=== PATIENT | male | born 1970 | race Caucasian/White ===

== ENCOUNTER 2016-11-09 22:53 | Emergency (ER) | payer SELFPAY ==
[2016-11-09 23:03] VITALS: BP 126/78
[2016-11-10] MEDS ORDERED: oxyCODONE/Acetamin 5/325 MG* TAB PO ONE ×2 (01:46→02:32)
--- NOTE | 2016-11-10 01:57 | ED ---
Upper Extremity Pain - HPI Summary HPI Summary: 46M presents with right hand pain for a day. He was pulling on his windshield wiper and felt a snap. He states though that he injured a week ago with a chain. He states he has had pain in ring finger on right hand for week that has been getting worst and then felt the snap today. had boxer fx of right pinky 4 years ago. denies any numbness or tingling. has been 16 hours since felt pop. he said he tried to reduce it himself and almost blacked out. is right handed. for work he uses heavy machinery. - History of Current Complaint Chief Complaint: EDExtremityUpper Stated Complaint: RT HAND INJURY Time Seen by Provider: 11/10/16 00:50 - Allergies/Home Medications Allergies/Adverse Reactions: Allergies Allergy/AdvReac Type Severity Reaction Status Date / Time Bee Venom Allergy Anaphylatic Verified 11/09/16 22:59 Shock Penicillins Allergy Anaphylatic Verified 11/09/16 22:59 Shock Shrimp Flavor Allergy Anaphylatic Verified 11/09/16 22:59 Shock PMH/Surg Hx/FS Hx/Imm Hx Endocrine/Hematology History: Denies: Hx Anticoagulant Therapy Cardiovascular History: Reports: Hx Hypertension Infectious Disease History: No Infectious Disease History: Denies: Traveled Outside the [place] in Last 30 Days - Family History Known Family History: Positive: Hypertension - Social History Alcohol Use: None Substance Use Type: Reports: None Smoking Status (MU): Light Every Day Tobacco Smoker Review of Systems Negative: Fever Negative: Chest Pain Negative: Shortness Of Breath Positive: Myalgia - right hand lac All Other Systems Reviewed And Are Negative: Yes Physical Exam Triage Information Reviewed: Yes Vital Signs On Initial Exam: Initial Vitals Temp Pulse Resp BP Pulse Ox 98 F 80 16 126/78 100 11/09/16 23:00 11/09/16 23:00 11/09/16 23:00 11/09/16 23:00 11/09/16 23:00 Vital Signs Reviewed: Yes Appearance: Positive: Pain Distress Skin: Positive: Warm, Dry Head/Face: Positive: Normal Head/Face Inspection Eyes: Positive: Normal, Conjunctiva Clear Respiratory/Lung Sounds: Positive: Clear to Auscultation, Breath Sounds Present Cardiovascular: Positive: Normal, RRR Musculoskeletal: Positive: Limited @ - right ring finger, Other - deformity to right ring finger. capillary refill<2 secs, sesnation grossly intact, tender over metacarpel right ring finger, good pulses - Gabriel Coma Scale Coma Scale Total: 15 Procedures - Splinting Location: right hand Hand-Made Type: orthoglass Splint: ulnar Pre-Proc Neuro Vasc Exam: normal Post-Proc Neuro Vasc Exam: normal - Joint Reduction Joint Reduction Site: other - 4th right metacarpel Specify Other Joint Reduced: 4th right metacarpel Conscious Sedation: No - hematoma block Reduction Attempts: 5 - unable to successful reduce without muscle spasms Pre-Procedure NV Exam: Yes Diagnostics - Vital Signs Vital Signs Temp Pulse Resp BP Pulse Ox 11/09/16 23:00 98 F 80 16 126/78 100 - Laboratory Lab Statement: Any lab studies that have been ordered have been reviewed, and results considered in the medical decision making process. - Radiology hand Xray Interpretation: Positive (See Comments) - 4th metacarpel fracture Radiology Interpretation Completed By: ED Physician Course/Dx - Course Course Of Treatment: 46M presents with right hand pain for a day. He was pulling on his [employer] wiper and felt a snap. He states though that he injured a week ago with a chain. He states he has had pain in ring finger on right hand for week that has been getting worst and then felt the snap today. had boxer fx of right pinky 4 years ago. denies any numbness or tingling. has been 16 hours since felt pop. on exam has deformity to right ring finger. capillary refill<2 secs, sesnation grossly intact. had dr ricketts look at xray and she agrees looks like calculus on fracture so probably old fracture that displaced today. attempted reduction after hematoma block but was unable to get it to stay in place. placed in ulnar gutter splint and neurovascular intact afterwards. told to follow up with ortho. patient understands and agrees with plan. - Diagnoses Differential Diagnosis/HQI/PQRI: Positive: Fracture (Closed), Strain, Sprain Provider Diagnoses: Fracture of metacarpal of right hand, closed Discharge - Discharge Plan Condition: Good Disposition: HOME Prescriptions: oxyCODONE/Acetamin 5/325 MG* [Percocet 5/325 TAB*] 1 tab PO Q6H PRN #16 tab MDD 4 PRN Reason: Pain Patient Education Materials: Boxer Fracture (ED) Referrals: No Primary Care Phys,NOPCP [Primary Care Provider] - Smiley Hugo MD [Medical Doctor] - Additional Instructions: Keep splint on area and keep dry Call ortho office tomorrow to set up appointment for follow up Use ibuprofen for pain every 6 hours and use narcotic for breakthrough pain Ice, elevate Return to ED if develop any new or worsening symptoms
--- NOTE | 2016-11-10 07:51 | RAD ---
Indication: Right hand injury. 4 views of the right hand demonstrates a transverse fracture through the midshaft of the fourth metacarpal. Dorsal angulation is noted. IMPRESSION: Transverse fracture shaft of the fourth metacarpal with dorsal angulation. There may be some mild callus formation noted.
== END 2016-11-10 02:58 | disposition home or self-care (01) ==
LOC: ED 22:53
DX: M79.641 Pain in right hand (principal); S62.309A Unspecified fracture of unspecified metacarpal bone, initial encounter for closed fracture; X58.XXXA Exposure to other specified factors, initial encounter; Y93.9 Activity, unspecified; Y92.9 Unspecified place or not applicable; F17.210 Nicotine dependence, cigarettes, uncomplicated
CPT/HCPCS: 99282; A9270-GY